=== PATIENT | female | born 1995 | race Two or more races ===

== ENCOUNTER 2024-11-02 12:28 | Outpatient (CLI) | payer OTHER ==
[2024-11-03] MEDS ORDERED: PRENATA CHEWAB1 EACH PO (02:07)
== END 2024-11-02 12:57 | disposition home or self-care (01) ==
LOC: NST 12:28
PROVIDERS: ATTEND Obstetrics & Gynecology
DX: Z34.83 Encounter for supervision of other normal pregnancy, third trimester (principal)

== ENCOUNTER 2024-11-03 01:25 | Inpatient (IN) | payer OTHER ==
[~2024-11-03] VITALS: Ht 175.3 cm; Wt 95.3 kg
[2024-11-03 00:51] VITALS: BP 131/82
[2024-11-03] MEDS ORDERED: AMPICILLIN SODIUM 1,000 MG VIAL IV SCH (01:29)
[2024-11-03] MEDS ORDERED: RINGERS SOLUTION,LACTATED 1,000 ML IV SCH (01:30)
[2024-11-03] MEDS ORDERED: AMPICILLIN SODIUM 2,000 MG VIAL IV ONE (01:30)
[2024-11-03] MEDS ORDERED: MORPHINE SULFATE 4 MG/ML CARTRIDGE IV PRN (01:30)
[2024-11-03] MEDS ORDERED: PRENATA CHEWAB1 EACH PO (02:07)
[2024-11-03 03:06] LABS: HEMATOCRIT 36.8 % (36.0-45.00); HEMOGLOBIN 12.8 g/dL (12.0-15.00); MEAN CELL VOLUME 85.5 fL (80.00-100.00); MEAN CORPUSCULAR HEMOGLOBIN 29.8 pg (27.00-32.0); MEAN CORPUSCULAR HGB CONC 34.8 g/dl (32.0-36.0); PLATELET COUNT 214 K/uL (150-450); RED CELL DISTRIBUTION WIDTH 13.7 % (11.5-14.5)
[2024-11-03 03:14] LABS: INR 0.94; PARTIAL THROMBOPLASTIN TIME 27.6 SECONDS (22.0-34.0); PROTHROMBIN TIME 10.3 SECONDS (9.0-11.5)
[2024-11-03 03:19] LABS: BILIRUBIN TOTAL 0.28 mg/dL (0.3-1.2); CALCIUM 9.6 mg/dL (8.5-10.1); CREATININE SERUM 0.43 mg/dL (0.55-1.02); GFR 176.14; GLOBULINA 3.5 G/DL (2.4-3.5); POTASSIUM 4.28 mEq/L (3.5-5.1); TOTAL PROTEIN 6.5 gm/dL (6.4-8.2)
[2024-11-03] MEDS ORDERED: OXYTOCIN 20 UNITS/500ML RL PIGGYBAG IV ONE (07:32)
[2024-11-03] MEDS ORDERED: LIDOCAINE HCL 1% 10ML VIAL ONE (07:33)
[2024-11-03] MEDS ORDERED: OXYTOCIN 20 UNITS/1000ML RL PIGGYBAG IV ONE (07:33)
[2024-11-03 16:00] VITALS: BP 120/75
[2024-11-03] MEDS ORDERED: IBUprofen 600 MG TABLET PO PRN (17:45)
[2024-11-04 00:16] VITALS: BP 97/59
[2024-11-04 07:42] LABS: HEMATOCRIT 28.6 % (36.0-45.00); HEMOGLOBIN 10.1 g/dL (12.0-15.00); MEAN CELL VOLUME 85.2 fL (80.00-100.00); MEAN CORPUSCULAR HGB CONC 35.2 g/dl (32.0-36.0); PLATELET COUNT 175 K/uL (150-450); RED BLOOD COUNT 3.36 M/uL (4.00-6.00)
[2024-11-04 07:55] VITALS: BP 102/64
[2024-11-04 16:00] VITALS: BP 121/85
[2024-11-04 20:00] VITALS: BP 104/66
[2024-11-05] VITALS: BP 106/53
[2024-11-05 08:56] VITALS: BP 127/89
== END 2024-11-05 13:26 | disposition home or self-care (01) | DRG 807 ==
LOC: OB/GYN → LDR 01:25 → OB/GYN 17:13
PROVIDERS: ADMIT Obstetrics & Gynecology; ATTEND Obstetrics & Gynecology
PROC: 10E0XZZ Delivery of Products of Conception, External Approach (ICD-10-PCS; principal; 2024-11-03)
PROC: 0KQM0ZZ Repair Perineum Muscle, Open Approach (ICD-10-PCS; 2024-11-03)
PROC: 4A1HXCZ Monitoring of Products of Conception, Cardiac Rate, External Approach (ICD-10-PCS; 2024-11-03)
DX: O70.1 Second degree perineal laceration during delivery (principal); Z37.0 Single live birth; O99.824 Streptococcus B carrier state complicating childbirth; Z3A.39 39 weeks gestation of pregnancy